=== PATIENT | female | born 1985 | race Caucasian/White ===

== ENCOUNTER 2016-11-07 19:09 | Emergency (ER) | payer OTHER ==
[~2016-11-07] VITALS: Ht 162.6 cm; Wt 59.1 kg
[~2016-11-07 19:09] MED LIST: DOCU-42; IBUP400T22; NOMED; OXYC-176; SULF1TAB35 PO
[2016-11-07 19:23] VITALS: BP 111/76; PULSE 107; RESP 16; O2SAT 98
== END 2016-11-07 20:48 | disposition left against medical advice (07) ==
LOC: SED 19:09
DX: H57.8 Other specified disorders of eye and adnexa (principal); R22.0 Localized swelling, mass and lump, head; Z53.29 Procedure and treatment not carried out because of patient's decision for other reasons

== ENCOUNTER 2016-11-23 18:31 | Emergency (ER) | payer OTHER ==
[~2016-11-23] VITALS: Ht 162.6 cm; Wt 61.4 kg
[2016-11-23 18:49] VITALS: BP 104/70; RESP 18; O2SAT 95
--- NOTE | 2016-11-23 19:39 | ED.REPORT ---
HPI-Ear Pain/Problem/FB Date of Service Nov 23, 2016 ED Provider: Yaakov Cohen MD Patient is a 31 year old female who presents to the ED complaining of right ear pain that began 2 days ago. She reports that her ears have been "plugged" and pressured since onset. Her current symptoms feel similar to her previous ear infections. Patient noticed purulent material draining from the area yesterday. She denies any recent fever or chills. Patient denies any other medical complaints at this time. Nursing Notes Stated Complaint: RIGHT EAR PAIN Chief Complaint: ENT & Mouth Nursing Notes Reviewed: Yes Allergies: Coded Allergies: No Known Allergies (Verified , 11/07/16) Scheduled Sulfamethoxazole/Trimeth 800-160 mg (Bactrim DS 800-160 mg) 1 Each Tablet 1 TABLET PO BID Miscellaneous Medications Docusate Sod-Expunged Drug, Do Not Renew! (Docusate Sod-Expunged Drug, Do Not Renew!) 100 Mg Capsule IBUPROFEN-Expunged Drug, Do Not Renew! (IBUPROFEN-Expunged Drug, Do Not Renew!) 400 Mg Tablet No Historical Medication (No Historical Medication) Ea Oxycodone/APAP-Expunged Drug, Do Not Renew! (Percocet 5/325-Expunged Drug, Do Not Renew!) 1 Each Tablet General Time Seen by MD: 19:38 Chief Complaint Ear problem right Hx Obtained From: Patient Arrived By: Walk-in Onset Occurred: 2 days ago Symptom Duration: Since onset Location: : Entire ear Quality: Painful Severity: Current: Mild Severity: Maximum: Mild Associated with: Denies: Chills, Fever Pertinent Negative: Pt denies other symptoms Recent Healthcare: No recent doctor visit, No recent hospitalization Past Medical History Past Medical History Reports: Heroin use, IV Drug use Past Surgical History none Family History non-contributory Smoking History Current Every Day Smoker Social History Alcohol Use: Denies alcohol use Drug Use: IV drugs, Meth Other Social History: Local resident Ambulatory Status Independent Review of Systems Constitutional: Denies: Chills, Fever Ears / Nose / Throat: Reports: Earache right, Hearing loss right (decreased hearing in R) Complete sys rev & neg: except as marked. Physical Exam Initial Vital Signs Vital Signs (First) Date Time Temp Pulse Resp B/P Pulse Ox O2 Delivery O2 Flow Rate FiO2 11/23/16 18:49 36.4 80 18 104/70 95 Room Air Initial VS: Reviewed Neck: Supple, Non-tender, Full range of motion Extremities: Vascular intact, Neuro intact, No swelling, No tenderness Skin: Warm, Dry, No cyanosis Neurologic: Alert, Oriented, Nonfocal Psychiatric: Mood/affect normal, Behavior normal, Normal thought content General/Constitutional: Awake, Alert, No acute distress, Well appearing, Well developed ENT: Atraumatic, Airway patent Right Ear / Mastoid: Positive: Discharge purulent, External canal red ( Eryethma and swelling present), Tympanic membrane red (only partially visualized due to swelling) Head / Eyes: Atraumatic, Normocephalic, PERRL Neck: Atraumatic, Supple Respiratory / Chest: Atraumatic, Breath sounds NL, Breath sounds = bilat, No respiratory distress Cardiovascular: Heart rate NL, Regular rhythm, Heart sounds NL, No gallop, No murmurs, No rubs Abdomen: Atraumatic, Soft Re-Eval/Medical Decision Med Decision/Clinical Course Patient is a 31 year old female who presents to the ED complaining of right ear pain that began 2 days ago. She reports that her ears have been "plugged" and pressured since onset. Her current symptoms feel similar to her previous ear infections. Patient noticed purulent material draining from the area yesterday. She denies any recent fever or chills. Patient denies any other medical complaints at this time. Here in the emergency department the patient is afebrile stable vital signs to examination as above. Presentation consistent with otitis externa. No evidence of otitis media. No evidence of malignant otitis externa or mastoiditis. Patient provided with neomycin-polymyxin otic drops and actions on how to use. She is advised to return right away should her symptoms fail to improve or worsen.Prior to discharge follow-up and return precautions were reviewed in detail with the patient who verbalized understanding and agreement with the plan. The patient was discharged in stable condition. Re-Evaluation/Progress : Time of Eval: 19:50 Patient Status: Condition improved Re-Evaluation/Progress Note: All questions about the intended treatment plan are addressed. She understands and agrees with the plan. Counseled Regarding: Diagnosis, Need for follow-up, When/why to return to ED Discharge & Departure Primary Impression: Otitis externa Otitis externa type: unspecified type Laterality: right Chronicity: acute Qualified Code: H60.501 - Unspecified acute noninfective otitis externa, right ear Additional Impressions: Right ear pain Drainage from right ear Disposition: Home Discharge Condition All VS Reviewed: Yes Condition: Stable Patient Instructions: Otitis Externa (ED) Additional Instructions: Thank you for seeking care at emergency room. It is difficult for us to make definitive diagnoses in the ED but we believe that you are experiencing otitis externa (outer ear infection) You will be discharged with a prescription for ofloxacin drops. Use 4 times daily for 7 days. You should follow-up with your primary doctor in the next week. You should return to the ED immediately if you develop fevers, chills, worsening pain, swelling or redness or any other concerning signs or symptoms. Thank you for letting us partake in your care today. Referrals: Marija Willams MD (PCP) Scribe Attestation Portions of this note were transcribed by Eligio Bui. I, Dr. Cohen personally performed the history, physical exam and medical decision-making; I reviewed and confirmed the accuracy of the information in the transcribed note. Signed by: Javier Alonso, 11/23/16 [id number]. copies to: Marija Willams MD, Beck O MD Nov 23, 2016 19:39 ELIGIO BUI Nov 23, 2016 19:49
[2016-11-23] MEDS ORDERED: _Neomy/Polymyxin/H-cort OTIC Susp 10 mL AFFECT_EAR SCH (21:30)
== END 2016-11-23 20:34 | disposition home or self-care (01) ==
LOC: SED 18:31
DX: H60.501 Unspecified acute noninfective otitis externa, right ear (principal); F17.200 Nicotine dependence, unspecified, uncomplicated